=== PATIENT | male | born 1955 | race Native Hawaiian/Other Pacific Islander ===

== ENCOUNTER 2016-09-01 17:38 | Emergency (ER) | payer OTHER ==
[~2016-09-01] VITALS: Ht 180.3 cm; Wt 95.0 kg
[~2016-09-01 17:38] MED LIST: ASPI81 PO; ATOR20TA42 PO; B COTAB3 PO; FISH1000 PO
[2016-09-01 17:40] VITALS: BP 143/68; PULSE 73; RESP 16; TEMP 98.1; O2SAT 97
[2016-09-01] MEDS ORDERED: PRED-503 PO (18:24)
--- NOTE | 2016-09-01 18:24 | PD ---
HPI Chief Complaint: Pain: Acute or Chronic Time Seen by Provider: 18:22 Travel History International Travel<30 days: No Contact w/Intl Traveler<30days: [place] Traveled to: [place] Traveled to known affect area: No History of Present Illness HPI 61-year-old male, with history of gout, presents to the emergency Department with complaint of left foot gout flare 4 days. Denies injury. Was seen at urgent care 4 days ago and was given indomethacin. Followed up with his primary care provider 2 days ago and was told to continue the indomethacin. He has had no improvement in his symptoms. He says his gout flares usually last 2- 3 days with quick resolution to the indomethacin. He denies paresthesias, loss of sensation, decreased range of motion, decreased strength to the affected extremity. Denies fever, chills, nausea, vomiting. He is concerned because the swelling has gone into his ankle and is concerned that this could be all of the way up his leg tomorrow morning when he wakes up. Denies calf pain. Denies history of DVT or PE. Allergies to penicillin. No other modifying factors or associated signs and symptoms. PFSH Social History Tobacco Use: No Allergies-Medications (Allergen,Severity, Reaction): Coded Allergies: Penicillin (Verified Allergy, Severe, RASH, 09/01/16) Reported Meds & Prescriptions Reported Meds & Active Scripts Active Clindamycin (Clindamycin HCl) 150 Mg Cap 450 Mg PO Q6H 10 Days Deltasone (Prednisone) 20 Mg Tab 40 Mg PO DAILY 5 Days Review of Systems Except as stated in HPI: all other systems reviewed are Neg Physical Exam Narrative GENERAL: Well-nourished, well-developed male patient, in no acute distress; afebrile, nontoxic-appearing SKIN: Warm and dry. Left foot dorsal great toe with mild erythema and mild edema extending into the metatarsal region. Tender on palpation. No abscess noted. Left ankle is mildly edematous without erythema or tenderness on palpation. HEAD: Atraumatic. Normocephalic. EYES: Pupils equal and round. No scleral icterus. No injection or drainage. ENT: Mucosa pink and moist. No erythema or exudates. NECK: Trachea midline. No lymphadenopathy. CARDIOVASCULAR: Regular rate. RESPIRATORY: No accessory muscle use. GASTROINTESTINAL: Rounded. MUSCULOSKELETAL: No obvious deformities. No clubbing. No cyanosis. No edema. Left lower extremity supple and non-tense with 2+ pedal pulse and sensory intact and without erythema or edema. No tenderness on palpation to the posterior upper calf. NEUROLOGICAL: Awake and alert. Oriented 3. No obvious cranial nerve deficits. Motor grossly within normal limits. Normal speech. Moves all extremities. 5/5 strength to all extremities. PSYCHIATRIC: Appropriate mood and affect; insight and judgment normal. Data Data Last Documented VS Vital Signs Date Time Temp Pulse Resp B/P Pulse Ox O2 Delivery O2 Flow Rate FiO2 09/01/16 17:40 98.1 73 16 143/68 97 Orders Dexamethasone Inj (Decadron Inj) (09/01/16 18:30) MDM Medical Decision Making Medical Screen Exam Complete: Yes Emergency Medical Condition: Yes Medical Record Reviewed: Yes Differential Diagnosis Gout flare, cellulitis, osteomyelitis, less likely DVT Narrative Course 61-year-old male physical exam consistent with left foot gout flare. He was seen at urgent care 4 days ago and was given indomethacin which is been taking with no improvement in symptoms. Patient is afebrile and nontoxic-appearing. He denies fever, chills, nausea, vomiting. I offered to do a foot x-ray to rule out osteomyelitis because the patient is concerned this flareup is not consistent with past flare ups in the patient declined at this time. I do not suspect DVT and feel that ultrasound at this time is not necessary; discussed signs and symptoms for the patient to return to the ER and he verbalized understanding and agreement. I will prescribe antibiotics for possible cellulitis. Instructed patient to continue indomethacin as prescribed. Decadron 10 mg IM administered in the ER. Deltasone and Clindamycin prescribed for home. Patient is medically cleared and stable for discharge. Discussed reasons to return to the emergency department. Instructed patient to follow up with primary care provider. Patient agrees with treatment plan. The patients vital signs are stable and the patient is stable for outpatient follow-up and treatment. Patient discharged home, stable and in no acute distress. Diagnosis Primary Impression: Gout flare Qualified Code: M10.9 - Acute gout of left foot, unspecified cause Referrals: Primary Care Physician Patient Instructions: General Instructions, Gout (ED) Additional Instructions: Rest Elevate affected extremity Prednisone as prescribed Avoid red meat, shellfish, alcohol, and other triggering foods to decrease risk of gout flare-ups Follow-up with your primary care provider Return to the emergency department with worsening of symptoms Med/Other Pt SpecificInfo: Prescription(s) given, No Change to Meds Scripts Clindamycin 150 Mg [id number] Mg PO Q6H 10 Days Ref 0 Prov:Tiffani Devries 09/02/16 Prednisone (Deltasone)20 Mg Tab40 Mg PO DAILY 5 Days Ref 0 Prov:Tiffani Devries 09/01/16 Disposition: 01 DISCHARGE HOME Condition: Stable Tiffani Devries Sep 01, 2016 18:24
[2016-09-01] MEDS ORDERED: DEXAMETHASONE SOD PHOS 20 MG/5 ML VIAL IM ONE (18:30)
[2016-09-02] MEDS ORDERED: CLIN1CAP5 PO (07:05)
== END 2016-09-01 18:44 | disposition home or self-care (01) ==
LOC: MERGE 17:38 → NEPB 17:38
DX: M10.9 Gout, unspecified (principal)
CPT/HCPCS: 96372; 99283; J1100

== ENCOUNTER 2016-10-10 20:02 | Observation (INO) | payer BC, OTHER ==
[~2016-10-10 20:02] MED LIST changes: +CLIN1CAP5 PO; +PRED-503 PO
[2016-10-10 20:27] VITALS: BP 113/61; PULSE 76; RESP 20; TEMP 98.3; O2SAT 97
[2016-10-10] MEDS ORDERED: ROSU1TAB4 PO (21:14)
[2016-10-10] MEDS ORDERED: LISI-519 PO (21:14)
[2016-10-10] MEDS ORDERED: WARF-60 PO (21:14)
[2016-10-10] MEDS ORDERED: METO50TA PO (21:14)
[2016-10-10] MEDS ORDERED: FUROSEMIDE 40 MG/4 ML VIAL IVP ONE (21:15)
[2016-10-10] MEDS ORDERED: SODIUM CHLORIDE 0.9% FLUSH 10 ML FLUSH IVF PRN (21:15)
[2016-10-10 21:23] VITALS: BP 116/69; PULSE 78; RESP 20; O2SAT 95
[2016-10-10 21:30] VITALS: BP 116/69; PULSE 78; RESP 20; O2SAT 98
--- NOTE | 2016-10-10 22:03 | PD ---
HPI Chief Complaint: Edema Time Seen by Provider: 21:12 Travel History International Travel<30 days: No Contact w/Intl Traveler<30days: No Traveled to known affect area: No History of Present Illness HPI 61-year-old male presents to the emergency department by private transportation the care of his family for complaint of bilateral lower extremity right greater than left edema. Patient was just released from the hospital and [facility] in [place] yesterday after being hospitalized for CABG. Patient had done well while hospitalized. Patient presents due to swelling of the lower legs and feet. Patient denies any fever chills chest pain pleuritic chest pain shortness of breath orthopnea PND nausea vomiting or abdominal pain. Patient denies any anginal chest pain although does have sternotomy pain at incision site. Patient states that he did have swelling of the lower extremities while in the hospital but seems to not more since yesterday. reports that she did contact the patient's surgeon and his medication list was reviewed and it was identified that they did not provide him a prescription for Lasix although he had been on Lasix during his hospitalization. Patient denies other concerns or complaints at this time. Patient does not report leg pain or redness. Patient's left lower extremity was used for harvesting for bypass vessels. Right lower extremity did not have any surgical procedure and is the more edematous limb. Patient denies any upper extremity pain or swelling. PFSH Past Medical History Narrative Medical CAD, CABG, gouty arthritis, hypertension, dyslipidemia hip surgery; no tobacco use: Nursing notes reviewed Hx Anticoagulant Therapy: Yes (ASA) Cardiac Catheterization: Yes Cardiovascular Problems: Yes Diminished Hearing: No Tetanus Vaccination: Unknown Influenza Vaccination: Yes Past Surgical History Coronary Artery Bypass Graft: Yes Social History Alcohol Use: No Tobacco Use: No Substance Use: No Allergies-Medications (Allergen,Severity, Reaction): Coded Allergies: Penicillin (Verified Allergy, Severe, RASH, 10/10/16) Reported Meds & Prescriptions Reported Meds & Active Scripts Active Reported Rosuvastatin (Rosuvastatin Calcium) 5 Mg Tab 5 Mg PO DAILY Metoprolol Tartrate 50 Mg Tab 50 Mg PO DAILY Warfarin 6 Mg Tab 6 Mg PO DAILY Lisinopril 5 Mg Tab 5 Mg PO DAILY Review of Systems Except as stated in HPI: all other systems reviewed are Neg General / Constitutional: No: Fever, Chills HENT: No: Congestion Cardiovascular: Positive: Edema, No: Chest Pain or Discomfort, Diaphoresis Respiratory: No: Cough, Shortness of Breath, Wheezing, Orthopnea Gastrointestinal: No: Nausea, Vomiting, Abdominal Pain Genitourinary: No: Flank Pain Musculoskeletal: Positive: Edema, No: Myalgias, Arthralgias Skin: No Rash Neurologic: No: Weakness, Dizziness, Syncope Psychiatric: No: Anxiety, Depression Hematologic/Lymphatic: No: Easy Bruising Physical Exam Narrative GENERAL: Well-developed well-nourished male in no acute distress no respiratory distress SKIN: Warm and dry. HEAD: Atraumatic. Normocephalic. EYES: Pupils equal and round. No scleral icterus. No injection or drainage. ENT: No nasal bleeding or discharge. Mucous membranes pink and moist. NECK: Trachea midline. No JVD. CARDIOVASCULAR: Regular rate and rhythm. Chest wall: Well healing midline sternotomy scar no purulent drainage no induration RESPIRATORY: No accessory muscle use. Clear to auscultation. Breath sounds equal bilaterally. GASTROINTESTINAL: Abdomen soft, non-tender, nondistended. Hepatic and splenic margins not palpable. MUSCULOSKELETAL: Extremities without clubbing, cyanosis, bilateral pedal and lower leg edema right greater than left edema. No obvious deformities. Well healing post harvesting scars from the left upper leg. Bilateral dorsalis pedis pulses 2+ to palpation. NEUROLOGICAL: Awake and alert. No obvious cranial nerve deficits. Motor grossly within normal limits. Five out of 5 muscle strength in the arms and legs. Normal speech. PSYCHIATRIC: Appropriate mood and affect; insight and judgment normal. Data Data Last Documented VS Vital Signs Date Time Temp Pulse Resp B/P Pulse Ox O2 Delivery O2 Flow Rate FiO2 10/11/16 00:30 78 20 119/70 98 Nasal Cannula 2 10/10/16 20:27 98.3 Orders Complete Blood Count With Diff (10/10/16 21:12) Basic Metabolic Panel (Bmp) (10/10/16 21:12) B-Type Natriuretic Peptide (10/10/16 21:12) Act Partial Throm Time (Ptt) (10/10/16 21:12) Prothrombin Time / Inr (Pt) (10/10/16 21:12) Troponin I (10/10/16 21:12) Iv Access Insert/Monitor (10/10/16 21:12) Electrocardiogram (10/10/16 21:12) Ecg Monitoring (10/10/16 21:12) Oximetry (10/10/16 21:12) Oxygen Administration (10/10/16 21:12) Chest, Single Ap (10/10/16 21:12) Sodium Chloride 0.9% Flush (Ns Flush) (10/10/16 21:15) Furosemide Inj (Lasix Inj) (10/10/16 21:15) Us Leg Venous Doppler Bilat (10/10/16 ) Magnesium (Mg) (10/10/16 21:12) Uric Acid (10/10/16 22:03) Admit Order (Ed Use Only) (10/11/16 ) ^ Saline Lock (10/11/16 00:31) Resp Oxygen Ronny C Titrat 1-4 L (10/11/16 ) Notify Dr: Other (10/11/16 00:31) Sodium Chloride 0.9% Flush (Ns Flush) (10/11/16 09:00) Sodium Chloride 0.9% Flush (Ns Flush) (10/11/16 00:45) Labs Laboratory Tests Test 10/10/16 22:10 White Blood Count 13.0 TH/MM3 Red Blood Count 2.68 MIL/MM3 Hemoglobin 7.9 GM/DL Hematocrit 23.6 % Mean Corpuscular Volume 88.0 FL Mean Corpuscular Hemoglobin 29.6 PG Mean Corpuscular Hemoglobin 33.7 % Concent Red Cell Distribution Width 13.9 % Platelet Count 223 TH/MM3 Mean Platelet Volume 7.7 FL Neutrophils (%) (Auto) 83.7 % Lymphocytes (%) (Auto) 8.2 % Monocytes (%) (Auto) 7.1 % Eosinophils (%) (Auto) 0.8 % Basophils (%) (Auto) 0.2 % Neutrophils # (Auto) 10.9 TH/MM3 Lymphocytes # (Auto) 1.1 TH/MM3 Monocytes # (Auto) 0.9 TH/MM3 Eosinophils # (Auto) 0.1 TH/MM3 Basophils # (Auto) 0.0 TH/MM3 CBC Comment AUTO DIFF Differential Comment AUTO DIFF CONFIRMED Platelet Estimate NORMAL Platelet Morphology Comment NORMAL Red Cell Morphology Comment NORMAL Prothrombin Time 33.1 SEC Prothromb Time International 2.9 RATIO Ratio Activated Partial 45.5 SEC Thromboplast Time Sodium Level 141 MEQ/L Potassium Level 4.3 MEQ/L Chloride Level 105 MEQ/L Carbon Dioxide Level 27.5 MEQ/L Anion Gap 9 MEQ/L Blood Urea Nitrogen 17 MG/DL Creatinine 1.20 MG/DL Estimat Glomerular Filtration 61 ML/MIN Rate Random Glucose 100 MG/DL Uric Acid 6.9 MG/DL Calcium Level 8.4 MG/DL Magnesium Level 2.3 MG/DL Troponin I 0.12 NG/ML B-Type Natriuretic Peptide 236 PG/ML MDM Medical Decision Making Medical Screen Exam Complete: Yes Emergency Medical Condition: Yes Medical Record Reviewed: Yes Interpretation(s) INR: 2.9, therapeutic Troponin I elevated 0.12 BNP mildly elevated at 236 Serum mag 2.3 in normal range EKG: nsr 1st degree avb rate 72 with left bundle branch block with Last Impressions Chest X-Ray 10/10/162111 Signed Impressions: Service Date/Time: Monday, October 10, 2016 22:01 - CONCLUSION: Mild bibasilar infiltrates. Osman Kumar MD Lower Extremity Ultrasound 10/10/16 0000 Signed Impressions: Service Date/Time: Monday, October 10, 2016 21:27 - CONCLUSION: 1. No evidence of DVT. 2. Focal occlusive thrombus in the proximal left greater saphenous vein. Osman Kumar MD CBC & BMP Diagram 10/10/16 22:10 Vital Signs Date Time Temp Pulse Resp B/P Pulse Ox O2 Delivery O2 Flow Rate FiO2 10/10/16 21:33 97 2 10/10/16 21:23 78 20 116/69 95 10/10/16 21:18 20 96 10/10/16 20:27 98.3 76 20 113/61 97 Differential Diagnosis Pedal edema, volume overload/CHF, hypoproteinemia, ACS, DVT, PE, pneumonia, electrolyte disturbance Narrative Course Medical records requested from [facility] At 10:55 PM patient resting comfortably waiting on uric acid however INR is in therapeutic range at 2.9 troponin I is elevated 0.12 patient does have left bundle branch block by EKG no comparison EKG available renal function's grossly within normal range patient is anemic with hemoglobin 7.9 ultrasound shows no evidence of DVT at this time patient is identified by chest x-ray to have bibasilar infiltrate with cardiomegaly but no evidence for failure patient's BNP is elevated at 236. Patient has received a one-time dose of a Lasix 40 mg IV. Plan will be to obtain medical records from [facility] call placed to patient's reproduction production manager, Dr Villar Medical records received from [facility] indicate patient underwent 09/30/[address] Rae: aortic valve replacement #27 mm Desouza Intuity bioprosthetic valve;CABG 2 with VILLAGRAN to LAD and SVG to diagonal; replacement of super coronary ascending aortic aneurysm with #32 mm vascutek graft; right femoral artery cannulation and EVH for dx: CAD aortic stenosis ascending aortic aneurysm Patient's case discussed with Dr. Dawkins covering for patient's reproduction production manager Dr. villar with recommendation to admit 23 hours for serial cardiac enzymes. Patient 's case discussed with on-call [facility] MD Dr Urbina --will admit to [facility] for serial enzymes. Family and patient informed of observation admission plans and agree. Diagnosis Primary Impression: Pedal edema Additional Impressions: Elevated troponin Anemia Admitting Information Admitting Physician Requests: Observation Daniella Rivera MD Oct 10, 2016 22:02
--- NOTE | 2016-10-10 22:07 | RADHPO ---
EXAM DATE/TIME: 10/10/2016 22:01 [facility] COMPARISON: No previous studies available for comparison. INDICATIONS : Patient states shortness of breath. MEDICAL HISTORY : None. SURGICAL HISTORY : CABG. ENCOUNTER: Initial ACUITY: 1 day PAIN SCORE: 3/10 LOCATION: Bilateral chest FINDINGS: A single view of the chest demonstrates mild infiltrates in both lung bases. The upper lung hopper ar e grossly clear. The heart size is enlarged. There is evidence of previous cardiothoracic surgery. No definite pleural effusions. The bony structures are grossly intact. CONCLUSION: Mild bibasilar infiltrates. Osman Kumar MD on October 10, 2016 at 22:05 Board Certified Radiologist. This report was verified electronically.
--- NOTE | 2016-10-10 22:09 | RADHPO ---
EXAM DATE/TIME: 10/10/2016 21:27 [facility] COMPARISON: No previous studies available for comparison. INDICATIONS : Bilateral leg swelling. MEDICAL HISTORY : Cardiac disorders. Anticoagulation therapy. SURGICAL HISTORY : CABG Right hip surgery. ENCOUNTER: Initial ACUITY: 1 day PAIN SCORE: 5/10 LOCATION: Bilateral legs. TECHNIQUE: Venous ultrasound of the left and right leg was performed from the inguinal ligament to the proximal calf. Real-time, color Doppler and spectral tracing, compression and augmentation techniques were us ed. FINDINGS: RIGHT LEG: There is normal compressibility of the deep venous system from the inguinal region to the proximal ca lf. No echogenic clot is seen in the lumen of the common femoral, femoral, popliteal, and posterior tibial veins. There is a normal response of the venous system to proximal and distal augmentation an d respiration. LEFT LEG: There is normal compressibility of the deep venous system from the inguinal region to the proximal ca lf. No echogenic clot is seen in the lumen of the common femoral, femoral, popliteal, and posterior tibial veins. There is a normal response of the venous system to proximal and distal augmentation an d respiration. There is occlusive thrombus in the left greater saphenous vein proximally. This could be postsurgical since the left greater saphenous vein was used for CABG. CONCLUSION: 1. No evidence of DVT. 2. Focal occlusive thrombus in the proximal left greater saphenous vein. Osman Kumar MD on October 10, 2016 at 22:06 Board Certified Radiologist. This report was verified electronically.
[2016-10-10 22:17] LABS: AUTOMATED NEUTROPHIL # 10.9 TH/MM3 (1.8-7.7); BASOPHIL % 0.2 % (0.0-2.0); EOSINOPHIL # 0.1 TH/MM3 (0-0.4); EOSINOPHIL % 0.8 % (0.0-4.0); HEMATOCRIT 23.6 % (39.0-51.0); LYMPH % 8.2 % (9.0-44.0); LYMPHOCYTE # 1.1 TH/MM3 (1.0-4.8); MEAN CORPUSCULAR HEMOGLOBIN 29.6 PG (27.0-34.0); MEAN CORPUSCULAR HGB CONC 33.7 % (32.0-36.0); MONO % 7.1 % (0.0-8.0); NEUT % 83.7 % (16.0-70.0); PLATELET COUNT 223 TH/MM3 (150-450); RED BLOOD COUNT 2.68 MIL/MM3 (4.50-5.90); RED CELL DISTRIBUTION WIDTH 13.9 % (11.6-17.2)
[2016-10-10 22:21] LABS: HEMO FLAGS AUTO DIFF
[2016-10-10 22:25] LABS: POTASSIUM 4.3 MEQ/L (3.5-5.1)
[2016-10-10 22:28] LABS: BICARBONATE 27.5 MEQ/L (21.0-32.0); MAGNESIUM 2.3 MG/DL (1.5-2.5)
[2016-10-10 22:34] LABS: APTT (PATIENT) 45.5 SEC (24.3-30.1); INTERNATIONAL NORMALIZED RATIO 2.9 RATIO; PROTHROMBIN TIME - PATIENT 33.1 SEC (9.8-11.6)
[2016-10-10 22:35] LABS: PLATELET ESTIMATE SMEAR NORMAL (NORMAL); PLATELET MORPHOLOGY NORMAL (NORMAL); SCAN/DIFF AUTO DIFF CONFIRMED
[2016-10-10 22:45] VITALS: BP 102/63; PULSE 76; RESP 20; O2SAT 98
[2016-10-10 23:26] VITALS: BP 126/71; PULSE 78; RESP 20; O2SAT 99
[2016-10-11] VITALS (8 sets, daily range): BP systolic 113–130; BP diastolic 66–82; PULSE 67–88; RESP 16–20; TEMP 97–98.1; O2SAT 97–99
[2016-10-11] MEDS ORDERED: MORPHINE SULFATE 4 MG/ML INJ IV PRN (00:30)
[2016-10-11] MEDS ORDERED: ACETAMINOPHEN 325 MG TAB PO PRN (00:30)
[2016-10-11] MEDS ORDERED: ACETAMINOPHEN/HYDROcodone 325 MG/5 MG TAB PO PRN (00:30)
[2016-10-11] MEDS ORDERED: BISACODYL 10 MG SUPP RECTAL PRN (00:30)
[2016-10-11] MEDS ORDERED: SODIUM CHLORIDE 0.9% FLUSH 10 ML FLUSH IV FLUSH PRN (00:30)
[2016-10-11] MEDS ORDERED: ONDANSETRON HCL 4 MG/2 ML VIAL IVP PRN (00:30)
[2016-10-11] MEDS ORDERED: SODIUM CHLORIDE 0.9% FLUSH 10 ML FLUSH IVF PRN (00:45)
[2016-10-11] MEDS ORDERED: DO NOT ADM ANY ANTICOAGULANT DRUGS OTHER PRN (01:00)
[2016-10-11] MEDS ORDERED: NITROGLYCERIN 0.3 MG SL 100 TABS/BTL SL PRN (07:30)
[2016-10-11] MEDS ORDERED: SODIUM CHLORIDE 0.9% FLUSH 10 ML FLUSH IV FLUSH SCH ×2 (09:00)
[2016-10-11] MEDS ORDERED: ATORVASTATIN 10 MG TAB PO SCH (09:00)
[2016-10-11] MEDS ORDERED: METOPROLOL TARTRATE 50 MG TAB PO SCH (09:00)
[2016-10-11] MEDS ORDERED: LISINOPRIL 5 MG TAB PO SCH (09:00)
--- NOTE | 2016-10-11 10:28 | EKG ---
Date Performed: 10/10/2016 Time Performed: 21:16:44 PTAGE: 61 years EKG: Sinus rhythm with 1st degree A-V block Left bundle branch block Abnormal ECG NO PREVIOUS TRACING DOCTOR: Lamont Goodwin Interpretating Date/Time 12/30/2016 14:30:59
[2016-10-11] MEDS ORDERED: FURO1TAB60 PO (11:11)
[2016-10-11] MEDS ORDERED: FUROSEMIDE 40 MG TAB PO ONE (11:15)
[2016-10-11] MEDS ORDERED: WARFARIN SOD 6 MG TAB PO SCH (16:00)
--- NOTE | 2016-10-11 20:29 | HHI.HP ---
[facility] Lalo Washington MD Admission Diagnosis pedal edema; elevated troponin I; LBBB; s/p CABG Diagnoses: Travel History International Travel<30 Days: No Contact w/Intl Traveler <30 Da: No Traveled to Known Affected Are: No History of Present Illness 61-year-old male with history of coronary artery disease, aortic stenosis, gout , status post coronary artery bypass with aortic valve replacement at [facility] on 09/30, subsequent lead discharged 09/08. He presents with a 2 day history of right lower extremity edema without pain. He reports that this started prior to discharge from the hospital, and has continued to get worse. He is concerned that he may be getting a gout flare, however there is no pain at this time. He otherwise says he is feeling better every day. He reports that postoperative chest pain is improving. Denies any shortness of breath. Denies any nausea or vomiting. Denies any fevers or chills. He says that he was on Lasix in the hospital prior to discharge, and was told he was to continue this, however did not receive prescription. He says he would like to go home. He would like to know if this is gout and if he can get Lasix. Patient is status post vein harvesting on the left leg, however not the right. Ultrasound on admission does show left saphenous vein thrombus. Patient is on warfarin, currently therapeutic. Reviewed labs from [facility]. Hemoglobin at discharge 7.9. White blood cell count 12. Review of Systems performed and negative except for HPI and past medical history. Past Family Social History Past Medical History Coronary artery disease status post CABG as above. Per [facility] underwent 09/30/[address] Rae: aortic valve replacement #27 mm Desouza Intuity bioprosthetic valve;CABG 2 with VILLAGRAN to LAD and SVG to diagonal ; replacement of super coronary ascending aortic aneurysm with #32 mm vascutek graft; right femoral artery cannulation and EVH. Patient had normal preoperative ejection fraction on echocardiogram. Gout Hypertension Hyperlipidemia Past Surgical History CABG 2, aortic valve replacement, aortic aneurysm repair as above Hip replacement Reported Medications Reported Meds & Active Scripts Active Reported Rosuvastatin (Rosuvastatin Calcium) 5 Mg Tab 5 Mg PO DAILY Metoprolol Tartrate 50 Mg Tab 50 Mg PO DAILY Warfarin 6 Mg Tab 6 Mg PO DAILY Lisinopril 5 Mg Tab 5 Mg PO DAILY Allergies: Coded Allergies: Penicillin (Verified Allergy, Severe, RASH, 10/10/16) Family History Family history reviewed with patient and found to be currently noncontributory. Social History Nonsmoker. Nondrinker. Denies illicit drugs. Physical Exam Vital Signs Vital Signs Date Time Temp Pulse Resp B/P Pulse Ox O2 Delivery O2 Flow Rate FiO2 10/11/16 12:00 97.8 67 20 129/78 98 10/11/16 08:00 98.1 79 20 113/66 98 10/11/16 05:07 97.0 88 16 126/82 97 10/11/16 03:40 99 21 10/11/16 02:12 97.8 83 16 130/80 98 10/11/16 02:10 80 10/11/16 01:45 74 20 122/72 98 10/11/16 00:30 78 20 119/70 98 Nasal Cannula 2 10/10/16 23:26 78 20 126/71 99 Nasal Cannula 2 10/10/16 22:45 76 20 102/63 98 10/10/16 21:33 97 2 10/10/16 21:30 78 20 116/69 98 10/10/16 21:23 78 20 116/69 95 10/10/16 21:18 20 96 10/10/16 20:27 98.3 76 20 113/61 97 Physical Exam GENERAL: This is a well-nourished, well-developed patient, in no apparent distress.alert and oriented 3. Appears comfortable. SKIN: No rashes, ecchymoses or lesions. Cool and dry.postoperative sternal incision without any erythema. Postoperative saphenous vein graft harvesting site with no surrounding erythema. HEAD: Atraumatic. Normocephalic. No temporal or scalp tenderness. EYES: Pupils equal round and reactive. Extraocular motions intact. No scleral icterus. No injection or drainage. ENT: Nose without bleeding, purulent drainage or septal hematoma. Throat without erythema, tonsillar hypertrophy or exudate. Uvula midline. Airway patent. NECK: Trachea midline. No JVD or lymphadenopathy. Supple, nontender, no meningeal signs. CARDIOVASCULAR: Regular rate and rhythm without murmurs, gallops, or rubs. RESPIRATORY: Clear to auscultation. Breath sounds equal bilaterally. No wheezes , rales, or rhonchi. GASTROINTESTINAL: Abdomen soft, non-tender, nondistended. No hepato-splenomegaly , or palpable masses. No guarding. MUSCULOSKELETAL: Extremities without clubbing, cyanosis.No joint tenderness, effusion,noted. No calf tenderness. Negative Homans sign bilaterally.right foot with +2 peripheral edema. No erythema. No broken skin. No tenderness. Left extremity with no erythema, trace edema. NEUROLOGICAL: Awake and alert. Cranial nerves II through XII intact. Motor and sensory grossly within normal limits. Five out of 5 muscle strength in all muscle groups. Normal speech. Laboratory Laboratory Tests Test 10/10/16 10/11/16 10/11/16 22:10 04:15 10:19 White Blood Count 13.0 Red Blood Count 2.68 Hemoglobin 7.9 Hematocrit 23.6 Mean Corpuscular Volume 88.0 Mean Corpuscular Hemoglobin 29.6 Mean Corpuscular Hemoglobin 33.7 Concent Red Cell Distribution Width 13.9 Platelet Count 223 Mean Platelet Volume 7.7 Neutrophils (%) (Auto) 83.7 Lymphocytes (%) (Auto) 8.2 Monocytes (%) (Auto) 7.1 Eosinophils (%) (Auto) 0.8 Basophils (%) (Auto) 0.2 Neutrophils # (Auto) 10.9 Lymphocytes # (Auto) 1.1 Monocytes # (Auto) 0.9 Eosinophils # (Auto) 0.1 Basophils # (Auto) 0.0 CBC Comment AUTO DIFF Differential Comment AUTO DIFF CONFIRMED Platelet Estimate NORMAL Platelet Morphology Comment NORMAL Red Cell Morphology Comment NORMAL Prothrombin Time 33.1 Prothromb Time International 2.9 Ratio Activated Partial 45.5 Thromboplast Time Sodium Level 141 Potassium Level 4.3 Chloride Level 105 Carbon Dioxide Level 27.5 Anion Gap 9 Blood Urea Nitrogen 17 Creatinine 1.20 Estimat Glomerular Filtration 61 Rate Random Glucose 100 Uric Acid 6.9 Calcium Level 8.4 Magnesium Level 2.3 Troponin I 0.12 0.11 0.09 B-Type Natriuretic Peptide 236 Result Diagram: 10/10/16220910/10/162209 Imaging Last Impressions Chest X-Ray 4/8/17 2112 Signed Impressions: Service Date/Time: Monday, October 10, 2016 22:01 - CONCLUSION: Mild bibasilar infiltrates. Osman Kumar MD Lower Extremity Ultrasound 10/10/16 0000 Signed Impressions: Service Date/Time: Monday, October 10, 2016 21:27 - CONCLUSION: 1. No evidence of DVT. 2. Focal occlusive thrombus in the proximal left greater saphenous vein. Osman Kumar MD Assessment and Plan Assessment and Plan //Right lower extremity edema. -This is unlikely to be gout. There is no DVT in this extremity. DVT in left extremity which does not have edema at all. Likely secondary to fluid overload. BNP mildly elevated in the 200s. As patient has not had vein harvesting on this leg, have discussed with him that he can try Raciel wraps, compression socks on the right leg only as necessary. We will start low-dose Lasix daily, and moderate fluid restrictions. Have discussed this with cardiology. He'll follow-up with his primary clip baker as an outpatient. Appreciate cardiology assistance. //Fluid overload. Mild. Began prior to discharge from [facility]. -Chest x-ray with some bibasilar infiltrates. Normal oxygenation. -We'll start patient on daily Lasix. Conservative fluid restrictions. Follow- up cardiology. //Saphenous vein provoked DVT left leg. This could be secondary to patient's recent vein harvesting in the same extremity. This appears to be asymptomatic with no edema or swelling. Patient is already on warfarin and therapeutic. We' ll continue warfarin patient will need to follow up with primary care and cardiology. Discussed with patient and who convey understanding. //Coronary artery disease //Hypertension //Postoperative coronary artery bypass, aortic valve replacement and ascending aortic aneurysm repair Patient appears to be recovering from surgery as expected. Vital signs are stable. Continue medications as ordered. With addition of Lasix. //Leukocytosis. Mild. No fevers, chills, or signs of infection. This is likely secondary to DVT. Advised patient if he experiences fevers or chills or any chest pain to seek medical attention. //Postoperative anemia. Stable from discharge. No signs of bleeding. Follow- up primary care. //Prophylaxis. Patient is on therapeutic warfarin. Code Status full code Discussed Condition With patient, nurse, clip baker information systems technician. Elpidio Ramirez MD Oct 11, 2016 20:29
[2016-10-12] MEDS ORDERED: FUROSEMIDE 40 MG TAB PO SCH (09:00)
--- NOTE | 2016-10-12 14:38 | EKG ---
Date Performed: 10/11/2016 Time Performed: 03:45:26 PTAGE: 61 years EKG: Sinus rhythm with first degree AV block Left bundle branch block Since the prior tracing, there has been no signi ficant serial change. Abnormal ECG PREVIOUS TRACING : 10/10/2016 21.16 DOCTOR: Romana Montalvo Interpretating Date/Time 12/30/2016 14:31:15
--- NOTE | 2016-10-12 14:38 | EKG ---
Date Performed: 10/11/2016 Time Performed: 10:12:54 PTAGE: 61 years EKG: Sinus rhythm with first degree AV block Left bundle branch block No significant serial change Abnormal ECG PREVIOUS TRACING : 10/11/2016 03.45 DOCTOR: Romana Montalvo Interpretating Date/Time 12/30/2016 14:31:23
== END 2016-10-11 12:58 | disposition home or self-care (01) ==
LOC: PHED 20:02 → MERGE 10-11 00:33 → PHEDA 10-11 00:33 → PH3B 10-11 01:54
PROVIDERS: ADMIT Internal Medicine; ATTEND Internal Medicine
DX: R60.0 Localized edema (principal); I82.812 Embolism and thrombosis of superficial veins of left lower extremity; R79.89 Other specified abnormal findings of blood chemistry; E87.70 Fluid overload, unspecified; D72.829 Elevated white blood cell count, unspecified; D64.9 Anemia, unspecified; I25.10 Atherosclerotic heart disease of native coronary artery without angina pectoris; M10.9 Gout, unspecified; I10 Essential (primary) hypertension; E78.5 Hyperlipidemia, unspecified; Z96.649 Presence of unspecified artificial hip joint; Z95.2 Presence of prosthetic heart valve; Z95.1 Presence of aortocoronary bypass graft; Z79.01 Long term (current) use of anticoagulants; Z88.0 Allergy status to penicillin
CPT/HCPCS: 71010; 80048; 83735; 83880; 84484; 84550; 85025; 85610; 85730; 93005; 93970; 96374; 99285; G0378; J1940